=== PATIENT | male | born 1950 | race Caucasian/White ===

== ENCOUNTER 2017-09-13 11:01 | Emergency (ER) | payer BC, MEDICARE ==
[2017-09-13] MEDS ORDERED: Furosemide 40 MG/4 ML VIAL IVPUSH ONE (13:14)
[2017-09-13] MEDS ORDERED: Furosemide 40 MG/4 ML VIAL ONE (13:17)
--- NOTE | 2017-09-13 14:28 | ER ---
HISTORY OF PRESENT ILLNESS: A 66-year-old male who comes in with his with complaints of feeling very tired since Saturday and just not feeling well. Occasional mild shortness of breath, minimal coughing. The patient has not had any problems with fever that he is aware of. Appetite has been significantly reduced. The patient states that he was doing well until just a few days ago. Now, things are slowly but surely getting worse. He has no history of coronary artery disease or CHF to the best of his or his 's knowledge. 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 He has history of non- Hodgkin's lymphoma, history of a brain tumor, history of myelodysplastic syndrome. He has had a bone marrow transplant a couple of years ago. After the bone marrow transplant, he has been diagnosed with RSV pneumonia twice and he had a CVA last year that did not leave any residual deficits. The patient is on Eliquis for this. CURRENT MEDICATIONS: Reviewed as listed. OBJECTIVE: GENERAL APPEARANCE: The patient is awake and alert. No respiratory distress. He appears tired. VITAL SIGNS: Are reviewed. Initial blood pressure is 153/94 , O2 sats are 62% on room air. A non-rebreather was applied, and the patient sats increased up to 95%. The respiration rate was 28 upon arrival. He is afebrile. The patient has rales throughout the lung garza. Oral mucous membranes are slightly dry. Tonsils not enlarged or injected. Pharynx not inflamed. NECK: Supple. I do notice minimal JVD today. ABDOMEN: Soft and nontender. Bowel sounds are present. EXTREMITIES: There is no lower extremity edema. SKIN: Intact. At this point, we did remove the oxygen temporarily and the patient's sats dropped quickly when they reached 79%, we reapplied the oxygen they dropped to 74% before recovering and then went back into the mid 90s. The patient did not seem to react much to the change in oxygen saturation. LABS: CBC shows a white count of 10.3, normal neutrophils or slightly elevated at 88.2, otherwise unremarkable. Metabolic panel shows a potassium of 5.7, sodium 135, BUN of 46, creatinine 2.71. GFR 24 glucose was 436[place] [address]. UA shows glucosuria and proteinuria. This triggered additional lab work to be done and that includes a lactic acid, VBG and the troponin, these results are currently pending and will be reported later. INITIAL DIAGNOSES: 1. ACUTE CHF. 2. RENAL FAILURE WITH A HISTORY OF RENAL FAILURE. 3. Hyperkalemia. TREATMENT PLAN: I did consult with in [place] talking to Dr. Crouch, hospitalist who accepted care for the patient. He will be transferred by fixed-wing aircraft. Lasix 60 mg was given IV here and a Bose started. Remaining details, I will dictate at a later time. CRS/MODL /[id number] MTDD
--- NOTE | 2017-09-13 14:42 | ER ---
ADDENDUM: Additional lab results revealed a lactic acid of 2.67, and troponin is elevated at 0.556. Venous blood gases show a pH of 7.39, pCO2 53.7, pO2 of 26, bicarb 32.7. I did call and talk one more time with Dr. Crouch, hospitalist at [facility] informing her of these new lab results. The patient was given 4 aspirin and he already is on Eliquis because of a CVA he had about 1 year ago. I informed her of these new findings. She did not order any additional blood thinners such as Plavix or heparin. She informed me she would be waiting for the patient when he arrived in [place]. He left our facility at about 2 :20 and will be traveling by fixed wing to [facility] in [place]. Additional diagnosis; 1. Non STEMI NH. 2. Possible Sepsis CRS/MODL /[id number] STEPHENIE
[2017-09-13 14:51] VITALS: BP 188/128
--- NOTE | 2017-09-13 17:16 | CR ---
DATE OF SERVICE: 09/13/17 CLINICAL DATA: SOB AP PORTABLE CHEST No priors. The heart is enlarged. There is pulmonary vascular congestion and bilateral perihilar pulmonary edema consistent with congestive failure. No pleural effusion. No pneumothorax. No other significant findings. [id number] MTDD
[2017-09-14] MEDS ORDERED: Aspirin 81 MG Tab.Chew PO SCH (08:00)
== END 2017-09-13 14:10 ==
LOC: LB.ED 11:01
DX: I21.4 Non-ST elevation (NSTEMI) myocardial infarction (principal); I50.9 Heart failure, unspecified; E87.5 Hyperkalemia
CPT/HCPCS: 36415; 51702; 71010; 80053; 81003; 82803; 83605; 83880; 84484; 85025; 93005; 96374; 99284; 99285; A0425; A0429; A9270; J1940

== ENCOUNTER 2017-09-18 23:58 | Observation (INO) | payer BC, MEDICARE ==
--- NOTE | 2017-09-19 01:30 | EDM.PDOC ---
ED HPI GENERAL MEDICAL PROBLEM - General Chief Complaint: General Stated Complaint: HIGH BLOOD GLUCOSE Time Seen by Provider: 09/19/17 01:25 Source of Information: Reports: Patient, Family, RN History Limitations: Reports: No Limitations - History of Present Illness INITIAL COMMENTS - FREE TEXT/NARRATIVE: 66 yr male with elevated blood sugar >600 at home. Pt is alert and ambulatory with walker and portable oxygen. States discharged from [facility], and spent the night in [place], then came home to cabin in [facility] [place]. States she had medications filled @ [facility] pharmacy, but Januvia wasn't filled, states she forgot to check if all medications were there. States he was just started on diabetic oral medications, during hospital stay. He has taken Glipizide bid. He was in [facility] with elevated troponins and elevated BNP per and pt. States checked blood sugar at 930pm 09-18-17 and was around 600 , has been staying with friend in [facility] as they had closed their cabin and were planning to go back to [place], [place]. He has medical appointments there next week. Onset: Today - Related Data Allergies Allergy/AdvReac Type Severity Reaction Status Date / Time No Known Allergies Allergy Verified 09/19/17 00:04 Home Meds: Home Meds Acyclovir 400 mg PO DAILY 09/13/17 [History] Apixaban [Eliquis] 5 mg PO BID 09/13/17 [History] Celecoxib [CeleBREX] 200 mg PO DAILY 09/13/17 [History] Cholecalciferol (Vitamin D3) [Vitamin D] 5,000 unit PO DAILY 09/13/17 [History] DULoxetine HCl [Cymbalta] 30 mg PO DAILY 09/13/17 [History] Fluconazole [Diflucan] 200 mg PO DAILY 09/13/17 [History] Fludrocortisone [Florinef] 0.1 mg PO WITHBREAKFAST 09/13/17 [History] Folic Acid 1 mg PO DAILY 09/13/17 [History] Gabapentin [Neurontin] 100 mg PO TID 09/13/17 [History] Hydrocortisone 20 mg PO BID 09/13/17 [History] Multivitamin [Multi-Day Vitamins] 1 each PO DAILY 09/13/17 [History] Omeprazole Magnesium [Prilosec Otc] 20 mg PO BID 09/13/17 [History] Penicillin V Potassium 500 mg PO BID 09/13/17 [History] Potassium Chloride [Klor-Con M20] 20 meq PO BID 09/13/17 [History] Prednisone [IJD: predniSONE] 20 mg PO WITHBREAKFAST 09/13/17 [History] Sirolimus 1 mg PO BID 09/13/17 [History] Sulfamethoxazole/Trimethoprim [Bactrim 400-80 MG] 1 each PO BID 09/13/17 [ History] Sulfamethoxazole/Trimethoprim [Bactrim 400-80 MG] 1 each PO DAILY 09/13/17 [ History] Past Medical History - Past Health History Medical/Surgical History: Denies Medical/Surgical History Cardiovascular History: Reports: [place] Neurological History: Reports: CVA Other Neuro History: Brain Tumor Endocrine/Metabolic History: Reports: Diabetes, Type II Other Hematologic History: bone marrow transplant, myelodysplastic syndrome Other Immunologic History: nonhodgkin's lymphoma Other Oncologic History: MDS - Past Surgical History Other HEENT Surgeries/Procedures: throat surgery Other Neurological Surgeries/Procedures: Brain Surgery Social & Family History - Tobacco Use Smoking Status *Q: Never Smoker Second Hand Smoke Exposure: No - Recreational Drug Use Recreational Drug Use: No ED ROS GENERAL - Review of Systems Review Of Systems: See Below Constitutional: Reports: No Symptoms HEENT: Reports: No Symptoms Respiratory: Reports: Other (portable oxygen) Cardiovascular: Reports: No Symptoms Endocrine: Reports: High Glucose GI/Abdominal: Reports: Difficulty Swallowing, Other (GI tube for medications) : Reports: No Symptoms Musculoskeletal: Reports: Other (ambulating with walker) Skin: Reports: Other (GI tube) Neurological: Reports: No Symptoms Psychiatric: Reports: No Symptoms ED EXAM, GENERAL - Physical Exam Exam: See Below Exam Limited By: No Limitations General Appearance: Alert, No Apparent Distress Ears: Normal External Exam Nose: Normal Inspection Throat/Mouth: Normal Inspection Head: Atraumatic Neck: Supple, Non-Tender Respiratory/Chest: No Respiratory Distress, Decreased Breath Sounds Cardiovascular: No Edema GI/Abdominal: Normal Bowel Sounds, Soft, Non-Tender (Male) Exam: Deferred Rectal (Males) Exam: Deferred Back Exam: Normal Inspection Extremities: Normal Range of Motion, No Pedal Edema Neurological: Alert, Oriented, Normal Cognition Psychiatric: Normal Affect Skin Exam: Warm, Dry, Other (ashen color) Course - Vital Signs Last Recorded V/S: Last Vital Signs Temp 97.8 F 09/19/17 05:00 Pulse 90 09/19/17 05:00 Resp 16 09/19/17 05:00 BP 144/68 H 09/19/17 05:00 Pulse Ox 97 09/19/17 05:34 - Orders/Labs/Meds Orders: Medication Orders Potassium Chloride/Sodium Chloride (1/2 Ns With 20 Meq Kcl) 1,000 mls @ 125 mls /hr IV ASDIRECTED AZEEM Insulin Human Regular (Humulin R) 0 unit SUBCUT BIDAC AZEEM PRN Reason: Protocol (Acyclovir [ (Acyclovir] 400 Mg)) 400 mg PO DAILY AZEEM (Apixaban [Eliquis] (5 Mg)) 5 mg PO BID AZEEM (Duloxetine Hcl [ (Cymbalta] 30 Mg)) 30 mg PO DAILY AZEEM (Fludrocortisone [ (Florinef] 0.1 Mg)) 0.1 mg PO WITHBREAKFAST AZEEM (Folic Acid [Folic (Acid] 1 Mg)) 1 mg PO DAILY AZEEM Non-Formulary Medication (Gabapentin [Neurontin]) 100 mg PO TID AZEEM Non-Formulary Medication (Hydrocortisone [Hydrocortisone]) 20 mg PO BID AZEEM (Multivitamin [Multi -Day Vitamins] 1 Each) 1 each PO DAILY AZEEM Non-Formulary Medication (Omeprazole Magnesium [Prilosec Otc]) 20 mg PO BID AZEEM Non-Formulary Medication (Prednisone [Ijd: Prednisone]) 20 mg PO WITHBREAKFAST AZEEM (Sulfamethoxazole/Trimethoprim [ Bactrim 400-80 Mg] 1 Each) 1 each PO DAILY AZEEM Potassium Chloride (Klor-Con M20) 20 meq PO TID AZEEM Labs: Laboratory Tests 09/19/17 09/19/17 09/19/17 Range/Units 01:30 01:30 01:30 WBC 7.7 D (4.0-11.0) K/uL RBC 2.76 L (4.50-6.50) M/uL Hgb 8.8 L (13.0-18.0) g/dL Hct 27.5 L (40.0-54.0) % MCV 100 H (76-96) fL MCH 31.9 (27.0-32.0) pg MCHC 32.0 (31.0-35.0) g/dL RDW 13.7 (11.0-16.0) % Plt Count 222 (150-400) K/uL MPV 11.8 H (6.0-10.0) fL Neut % (Auto) 84.6 H (45.0-70.0) % Lymph % (Auto) 9.2 L (20.0-40.0) % [place] % (Auto) 5.4 (3.0-10.0) % Eos % (Auto) 0.0 L (1.0-5.0) % Baso % (Auto) 0.8 H (0.0-0.5) % Neut # (Auto) 6.53 (2.00-7.50) K/uL Lymph # (Auto) 0.71 L (1.50-4.00) K/uL [place] # (Auto) 0.42 (0.20-0.80) K/uL Eos # (Auto) 0.00 L (0.04-0.40) K/uL Baso # (Auto) 0.06 (0.02-0.10) K/uL PT (9.0-11.5) sec INR (1.0-3.5) Sodium 135 L (136-145) mmol/L Potassium 3.8 D (3.5-5.1) mmol/L Chloride 92 L (98-107) mmol/L Carbon Dioxide 30.8 (21.0-32.0) mmol/L Anion Gap 16.0 H (5.0-15.0) mmol/L BUN 54 H* (8-26) mg/dL Creatinine 2.64 H (0.70-1.30) mg/dL Est Cr Clr Drug Dosing 27.00 mL/min Estimated GFR (MDRD) 24 L (>60) MLS/MIN BUN/Creatinine Ratio 20.5 (6-25) Glucose 653 H* D (74-100) mg/dL Lactic Acid 6.46 H (0.90-1.70) mmol/L Calcium 8.4 L (8.5-10.1) mg/dL Total Bilirubin 0.3 D (0.0-1.0) mg/dL AST 27 (15-37) U/L ALT 30 (12-78) U/L Alkaline Phosphatase 117 H (46-116) U/L Troponin I (0.000-0.060) ng/mL B-Natriuretic Peptide (0-125) pg/mL Total Protein 5.9 L (6.4-8.2) g/dL Albumin 2.3 L (3.4-5.0) g/dL Globulin 3.6 (2.2-4.2) g/dL Albumin/Globulin Ratio 0.6 L (0.8-2.0) Urine Color Urine Appearance (CLEAR) Urine pH (5.0-8.0) Ur Specific [place] (1.003-1.030) Urine Protein (NEGATIVE) mg/dL Urine Glucose (UA) (NEGATIVE) mg/dL Urine Ketones (NEGATIVE) mg/dL Urine Occult Blood (NEGATIVE) Urine Nitrite (NEGATIVE) Urine Bilirubin (NEGATIVE) Urine Urobilinogen (0.2-1.0) E.U./dL Ur Leukocyte Esterase (NEGATIVE) Urine RBC /HPF Urine WBC /HPF Ur Squamous Epith Cells /HPF 09/19/17 09/19/17 09/19/17 Range/Units 01:30 01:31 01:35 WBC (4.0-11.0) K/uL RBC (4.50-6.50) M/uL Hgb (13.0-18.0) g/dL Hct (40.0-54.0) % MCV (76-96) fL MCH (27.0-32.0) pg MCHC (31.0-35.0) g/dL RDW (11.0-16.0) % Plt Count (150-400) K/uL MPV (6.0-10.0) fL Neut % (Auto) (45.0-70.0) % Lymph % (Auto) (20.0-40.0) % [place] % (Auto) (3.0-10.0) % Eos % (Auto) (1.0-5.0) % Baso % (Auto) (0.0-0.5) % Neut # (Auto) (2.00-7.50) K/uL Lymph # (Auto) (1.50-4.00) K/uL [place] # (Auto) (0.20-0.80) K/uL Eos # (Auto) (0.04-0.40) K/uL Baso # (Auto) (0.02-0.10) K/uL PT 9.7 (9.0-11.5) sec INR 1.0 (1.0-3.5) Sodium (136-145) mmol/L Potassium (3.5-5.1) mmol/L Chloride (98-107) mmol/L Carbon Dioxide (21.0-32.0) mmol/L Anion Gap (5.0-15.0) mmol/L BUN (8-26) mg/dL Creatinine (0.70-1.30) mg/dL Est Cr Clr Drug Dosing mL/min Estimated GFR (MDRD) (>60) MLS/MIN BUN/Creatinine Ratio (6-25) Glucose (74-100) mg/dL Lactic Acid (0.90-1.70) mmol/L Calcium (8.5-10.1) mg/dL Total Bilirubin (0.0-1.0) mg/dL AST (15-37) U/L ALT (12-78) U/L Alkaline Phosphatase (46-116) U/L Troponin I 0.083 H* D (0.000-0.060) ng/mL B-Natriuretic Peptide 3653 H D (0-125) pg/mL Total Protein (6.4-8.2) g/dL Albumin (3.4-5.0) g/dL Globulin (2.2-4.2) g/dL Albumin/Globulin Ratio (0.8-2.0) Urine Color Urine Appearance (CLEAR) Urine pH (5.0-8.0) Ur Specific [place] (1.003-1.030) Urine Protein (NEGATIVE) mg/dL Urine Glucose (UA) (NEGATIVE) mg/dL Urine Ketones (NEGATIVE) mg/dL Urine Occult Blood (NEGATIVE) Urine Nitrite (NEGATIVE) Urine Bilirubin (NEGATIVE) Urine Urobilinogen (0.2-1.0) E.U./dL Ur Leukocyte Esterase (NEGATIVE) Urine RBC /HPF Urine WBC /HPF Ur Squamous Epith Cells /HPF 09/19/17 Range/Units 02:10 WBC (4.0-11.0) K/uL RBC (4.50-6.50) M/uL Hgb (13.0-18.0) g/dL Hct (40.0-54.0) % MCV (76-96) fL MCH (27.0-32.0) pg MCHC (31.0-35.0) g/dL RDW (11.0-16.0) % Plt Count (150-400) K/uL MPV (6.0-10.0) fL Neut % (Auto) (45.0-70.0) % Lymph % (Auto) (20.0-40.0) % [place] % (Auto) (3.0-10.0) % Eos % (Auto) (1.0-5.0) % Baso % (Auto) (0.0-0.5) % Neut # (Auto) (2.00-7.50) K/uL Lymph # (Auto) (1.50-4.00) K/uL [place] # (Auto) (0.20-0.80) K/uL Eos # (Auto) (0.04-0.40) K/uL Baso # (Auto) (0.02-0.10) K/uL PT (9.0-11.5) sec INR (1.0-3.5) Sodium (136-145) mmol/L Potassium (3.5-5.1) mmol/L Chloride (98-107) mmol/L Carbon Dioxide (21.0-32.0) mmol/L Anion Gap (5.0-15.0) mmol/L BUN (8-26) mg/dL Creatinine (0.70-1.30) mg/dL Est Cr Clr Drug Dosing mL/min Estimated GFR (MDRD) (>60) MLS/MIN BUN/Creatinine Ratio (6-25) Glucose (74-100) mg/dL Lactic Acid (0.90-1.70) mmol/L Calcium (8.5-10.1) mg/dL Total Bilirubin (0.0-1.0) mg/dL AST (15-37) U/L ALT (12-78) U/L Alkaline Phosphatase (46-116) U/L Troponin I (0.000-0.060) ng/mL B-Natriuretic Peptide (0-125) pg/mL Total Protein (6.4-8.2) g/dL Albumin (3.4-5.0) g/dL Globulin (2.2-4.2) g/dL Albumin/Globulin Ratio (0.8-2.0) Urine Color Yellow Urine Appearance Clear (CLEAR) Urine pH 5.0 (5.0-8.0) Ur Specific [place] 1.010 (1.003-1.030) Urine Protein Negative (NEGATIVE) mg/dL Urine Glucose (UA) 500 H (NEGATIVE) mg/dL Urine Ketones Negative (NEGATIVE) mg/dL Urine Occult Blood Trace-lysed H (NEGATIVE) Urine Nitrite Negative (NEGATIVE) Urine Bilirubin Negative (NEGATIVE) Urine Urobilinogen 0.2 (0.2-1.0) E.U./dL Ur Leukocyte Esterase Negative (NEGATIVE) Urine RBC 0-5 H /HPF Urine WBC 0-5 H /HPF Ur Squamous Epith Cells Few /HPF Meds: Medications Generic Name Dose Route Start Last Admin Trade Name Freq PRN Reason Stop Dose Admin Potassium Chloride/Sodium Chloride 1,000 mls @ 125 mls/hr 09/19/17 07:45 1/2 Ns With 20 Meq Kcl IV ASDIRECTED AZEEM Insulin Human Regular 0 unit 09/19/17 08:15 Humulin R SUBCUT BIDAC AZEEM Protocol (Acyclovir [ 400 mg 09/19/17 08:00 Acyclovir] 400 Mg) PO DAILY AZEEM (Apixaban [Eliquis] 5 mg 09/19/17 08:00 5 Mg) PO BID AZEEM (Duloxetine Hcl [ 30 mg 09/19/17 08:00 Cymbalta] 30 Mg) PO DAILY AZEEM (Fludrocortisone [ 0.1 mg 09/20/17 07:00 Florinef] 0.1 Mg) PO WITHBREAKFAST AZEEM (Folic Acid [Folic 1 mg 09/19/17 08:00 Acid] 1 Mg) PO DAILY AZEEM Non-Formulary Medication 100 mg 09/19/17 08:00 Gabapentin [Neurontin] PO TID AZEEM Non-Formulary Medication 20 mg 09/19/17 08:00 Hydrocortisone [Hydrocortisone] PO BID AZEEM (Multivitamin [Multi 1 each 09/19/17 08:00 -Day Vitamins] 1 PO Each) DAILY AZEEM Non-Formulary Medication 20 mg 09/19/17 08:00 Omeprazole Magnesium [Prilosec Otc] PO BID AZEEM Non-Formulary Medication 20 mg 09/20/17 07:00 Prednisone [Ijd: Prednisone] PO WITHBREAKFAST AZEEM (Sulfamethoxazole/ 1 each 09/19/17 08:00 Trimethoprim [ PO Bactrim 400-80 Mg] 1 DAILY AZEEM Each) Potassium Chloride 20 meq 09/19/17 07:45 Klor-Con M20 PO TID AZEEM Discontinued Medications Generic Name Dose Route Start Last Admin Trade Name Johnny PRN Reason Stop Dose Admin Sodium Chloride 1,000 mls @ 250 mls/hr 09/19/17 02:45 09/19/17 02:45 Sodium Chloride 0.45% IV 250 mls/hr ASDIRECTED AZEEM Administration Sodium Chloride 1,000 mls @ 999 mls/hr 09/19/17 01:40 09/19/17 01:40 Normal Saline IV 999 mls/hr ASDIRECTED AZEEM Administration Insulin Human Regular 10 unit 09/19/17 02:45 09/19/17 02:30 Humulin R SUBCUT 09/19/17 02:46 10 units ONETIME ONE Administration Protocol - Re-Assessments/Exams Free Text/Narrative Re-Assessment/Exam: 09-19-17 3:30 Discharge to observation: Monitor blood sugars every 1 hour, may have toast and juice this am as tolerated. Repeat Potassium and blood sugar at 3:30 and if stable, repeat labs 7am, BMP. Pt has been alert and talking and states no pain. States very tired after discharge from [facility] and travel to [facility]. 09/19/17 07:47 Potassium is 2.9 today and blood sugar is 325. A/P: hyperglycemia and hypokalemia: Change IV fluids to 0.45% saline and 20 KCL Potassium 20 meq PO tid with food. Medications as at home. Continue with sliding scale ac and hs. 09/19/17 07:51 09/19/17 09:15 Departure - Departure Time of Disposition: 03:30 Disposition: Refer to Observation Condition: Fair Clinical Impression: Hyperglycemia - Discharge Information
[2017-09-19] MEDS ORDERED: Sodium Chloride 0.9% 1,000 ML IV SCH (01:40)
[2017-09-19] MEDS ORDERED: Insulin Regular, Human 100 Units/ML 3 ML Vial SUBCUT ONE (02:45)
[2017-09-19] MEDS ORDERED: Sodium Chloride 0.45% 1,000 ML IV SCH (02:45)
[2017-09-19] MEDS ORDERED: Sodium Chloride 0.45% with KCl 1,000 ML IV SCH (07:45)
[2017-09-19] MEDS ORDERED: MULTIVITAMIN PO SCH (08:00)
[2017-09-19] MEDS ORDERED: Insulin Regular, Human 100 Units/ML 3 ML Vial SUBCUT SCH ×2 (08:15→12:00)
[2017-09-19] MEDS: FUROSEMIDE 40 MG PO SCH (13:30)
[2017-09-19] MEDS: Non-Formulary Medication 1 Each (Gabapentin [Neurontin] 100 MG) PO SCH ×3 (13:30→20:30)
[2017-09-19] MEDS: Non-Formulary Medication 1 Each (Omeprazole Magnesium [Prilosec Otc] 20 MG) PO SCH ×2 (13:30→20:31)
[2017-09-19] MEDS: ACYCLOVIR 400 MG PO SCH (13:30)
[2017-09-19] MEDS: AMLODIPINE 5 MG PO SCH (13:30)
[2017-09-19] MEDS: Potassium Chloride 20 MEQ Tab.ER PO SCH ×3 (13:30→20:31)
[2017-09-19] MEDS: HYDROCORTISONE 20 MG PO SCH ×2 (13:30→20:33)
[2017-09-19] MEDS: FLUDROCORTISONE 0.1 MG PO SCH (13:30)
[2017-09-19] MEDS: DULOXETINE HCL 30 MG PO SCH (13:30)
[2017-09-19] MEDS: CARVEDILOL 6.25 MG PO SCH (13:30)
[2017-09-19] MEDS ORDERED: Potassium Chloride 20 MEQ Tab.ER PO ONE (13:54)
[2017-09-19] MEDS: TRIMETHOPRIM PO SCH (18:53)
[2017-09-19] MEDS: SULFAMETHOXAZOLE PO SCH (18:53)
[2017-09-19] MEDS: ATORVASTATIN 40 MG PO SCH (20:30)
[2017-09-20] MEDS ORDERED: Sodium Chloride 0.45% 1,000 ML IV SCH (00:45)
[2017-09-20] MEDS ORDERED: PREDNISONE 20 MG PO SCH (07:00)
[2017-09-20] MEDS: Potassium Chloride 20 MEQ Tab.ER PO SCH (08:00)
[2017-09-20] MEDS ORDERED: CELECOXIB 200 MG PO SCH (08:00)
[2017-09-20] MEDS ORDERED: GLIPIZIDE 5 MG PO SCH (08:00)
[2017-09-20] MEDS ORDERED: JANUVIA 50 MG PO SCH (08:00)
[2017-09-20] MEDS: Non-Formulary Medication 1 Each (Omeprazole Magnesium [Prilosec Otc] 20 MG) PO SCH (08:05)
--- NOTE | 2017-09-20 08:17 | PCM.PN ---
- General Info Date of Service: 09/20/17 Admission Dx/Problem (Free Text): hyperglycemia Subjective Update: Pt feeling better and states hungry today. States he and are ready to venture south to home in [place]. States they will take their time driving there and have stops along the way at motels. Functional Status: Reports: Tolerating Diet, Urinating - Review of Systems General: Reports: No Symptoms Pulmonary: Reports: No Symptoms Cardiovascular: Reports: No Symptoms Gastrointestinal: Reports: No Symptoms Genitourinary: Reports: No Symptoms Neurological: Reports: No Symptoms - Patient Data Vitals - Most Recent: Last Vital Signs Temp 97.8 F 09/19/17 05:00 Pulse 90 09/19/17 05:00 Resp 16 09/19/17 05:00 BP 144/68 H 09/19/17 05:00 Pulse Ox 97 09/19/17 05:34 Weight - Most Recent: 155 lb I&O - Last 24 Hours: Intake & Output 09/19/17 09/20/17 09/20/17 22:59 06:59 14:59 Intake Total 1722 2050 Output Total 1500 1200 Balance 222 850 Lab Results Last 24 Hours: Laboratory Results - last 24 hr 09/19/17 09/19/17 09/19/17 Range/Units 07:00 07:00 07:00 WBC (4.0-11.0) K/uL RBC (4.50-6.50) M/uL Hgb (13.0-18.0) g/dL Hct (40.0-54.0) % MCV (76-96) fL MCH (27.0-32.0) pg MCHC (31.0-35.0) g/dL RDW (11.0-16.0) % Plt Count (150-400) K/uL MPV (6.0-10.0) fL Neut % (Auto) (45.0-70.0) % Lymph % (Auto) (20.0-40.0) % Buchanan % (Auto) (3.0-10.0) % Eos % (Auto) (1.0-5.0) % Baso % (Auto) (0.0-0.5) % Neut # (Auto) (2.00-7.50) K/uL Lymph # (Auto) (1.50-4.00) K/uL Buchanan # (Auto) (0.20-0.80) K/uL Eos # (Auto) (0.04-0.40) K/uL Baso # (Auto) (0.02-0.10) K/uL VBG pH 7.50 H (7.31-7.41) VBG pCO2 48.0 (41-51) mm/Hg VBG pO2 52 H (30-50) mm/Hg VBG HCO3 37.1 H (23.0-28.0) mmol/L VBG O2 Saturation 89 H (60-85) % VBG Base Excess 14 H (-2-3) mm/L O2 Delivery Device Nasal cannula Sodium (136-145) mmol/L Potassium (3.5-5.1) mmol/L Chloride (98-107) mmol/L Carbon Dioxide (21.0-32.0) mmol/L Anion Gap (5.0-15.0) mmol/L BUN (8-26) mg/dL Creatinine (0.70-1.30) mg/dL Est Cr Clr Drug Dosing mL/min Estimated GFR (MDRD) (>60) MLS/MIN BUN/Creatinine Ratio (6-25) Glucose (74-100) mg/dL POC Glucose (74-110) mg/dL Hemoglobin A1c 9.6 H (4.5-6.2) % Lactic Acid (0.90-1.70) mmol/L Calcium (8.5-10.1) mg/dL Total Bilirubin (0.0-1.0) mg/dL AST (15-37) U/L ALT (12-78) U/L Alkaline Phosphatase (46-116) U/L Troponin I (0.000-0.060) ng/mL B-Natriuretic Peptide 3424 H (0-125) pg/mL Total Protein (6.4-8.2) g/dL Albumin (3.4-5.0) g/dL Globulin (2.2-4.2) g/dL Albumin/Globulin Ratio (0.8-2.0) 09/19/17 09/19/17 09/19/17 Range/Units 12:00 16:55 16:55 WBC (4.0-11.0) K/uL RBC (4.50-6.50) M/uL Hgb (13.0-18.0) g/dL Hct (40.0-54.0) % MCV (76-96) fL MCH (27.0-32.0) pg MCHC (31.0-35.0) g/dL RDW (11.0-16.0) % Plt Count (150-400) K/uL MPV (6.0-10.0) fL Neut % (Auto) (45.0-70.0) % Lymph % (Auto) (20.0-40.0) % Buchanan % (Auto) (3.0-10.0) % Eos % (Auto) (1.0-5.0) % Baso % (Auto) (0.0-0.5) % Neut # (Auto) (2.00-7.50) K/uL Lymph # (Auto) (1.50-4.00) K/uL Buchanan # (Auto) (0.20-0.80) K/uL Eos # (Auto) (0.04-0.40) K/uL Baso # (Auto) (0.02-0.10) K/uL VBG pH (7.31-7.41) VBG pCO2 (41-51) mm/Hg VBG pO2 (30-50) mm/Hg VBG HCO3 (23.0-28.0) mmol/L VBG O2 Saturation (60-85) % VBG Base Excess (-2-3) mm/L O2 Delivery Device Sodium 143 (136-145) mmol/L Potassium 3.4 L (3.5-5.1) mmol/L Chloride 100 (98-107) mmol/L Carbon Dioxide 39.4 H (21.0-32.0) mmol/L Anion Gap 7.0 (5.0-15.0) mmol/L BUN 37 H (8-26) mg/dL Creatinine 1.81 H (0.70-1.30) mg/dL Est Cr Clr Drug Dosing 39.38 mL/min Estimated GFR (MDRD) 38 L (>60) MLS/MIN BUN/Creatinine Ratio 20.4 (6-25) Glucose 213 H D (74-100) mg/dL POC Glucose (74-110) mg/dL Hemoglobin A1c (4.5-6.2) % Lactic Acid (0.90-1.70) mmol/L Calcium 8.1 L (8.5-10.1) mg/dL Total Bilirubin (0.0-1.0) mg/dL AST (15-37) U/L ALT (12-78) U/L Alkaline Phosphatase (46-116) U/L Troponin I 0.102 H* 0.094 H* (0.000-0.060) ng/mL B-Natriuretic Peptide (0-125) pg/mL Total Protein (6.4-8.2) g/dL Albumin (3.4-5.0) g/dL Globulin (2.2-4.2) g/dL Albumin/Globulin Ratio (0.8-2.0) 09/19/17 09/19/17 09/19/17 Range/Units 21:07 23:00 23:56 WBC (4.0-11.0) K/uL RBC (4.50-6.50) M/uL Hgb (13.0-18.0) g/dL Hct (40.0-54.0) % MCV (76-96) fL MCH (27.0-32.0) pg MCHC (31.0-35.0) g/dL RDW (11.0-16.0) % Plt Count (150-400) K/uL MPV (6.0-10.0) fL Neut % (Auto) (45.0-70.0) % Lymph % (Auto) (20.0-40.0) % Buchanan % (Auto) (3.0-10.0) % Eos % (Auto) (1.0-5.0) % Baso % (Auto) (0.0-0.5) % Neut # (Auto) (2.00-7.50) K/uL Lymph # (Auto) (1.50-4.00) K/uL Buchanan # (Auto) (0.20-0.80) K/uL Eos # (Auto) (0.04-0.40) K/uL Baso # (Auto) (0.02-0.10) K/uL VBG pH (7.31-7.41) VBG pCO2 (41-51) mm/Hg VBG pO2 (30-50) mm/Hg VBG HCO3 (23.0-28.0) mmol/L VBG O2 Saturation (60-85) % VBG Base Excess (-2-3) mm/L O2 Delivery Device Sodium (136-145) mmol/L Potassium 4.2 D (3.5-5.1) mmol/L Chloride (98-107) mmol/L Carbon Dioxide (21.0-32.0) mmol/L Anion Gap (5.0-15.0) mmol/L BUN (8-26) mg/dL Creatinine (0.70-1.30) mg/dL Est Cr Clr Drug Dosing mL/min Estimated GFR (MDRD) (>60) MLS/MIN BUN/Creatinine Ratio (6-25) Glucose (74-100) mg/dL POC Glucose 337 H 249 H (74-110) mg/dL Hemoglobin A1c (4.5-6.2) % Lactic Acid (0.90-1.70) mmol/L Calcium (8.5-10.1) mg/dL Total Bilirubin (0.0-1.0) mg/dL AST (15-37) U/L ALT (12-78) U/L Alkaline Phosphatase (46-116) U/L Troponin I (0.000-0.060) ng/mL B-Natriuretic Peptide (0-125) pg/mL Total Protein (6.4-8.2) g/dL Albumin (3.4-5.0) g/dL Globulin (2.2-4.2) g/dL Albumin/Globulin Ratio (0.8-2.0) 09/20/17 09/20/17 09/20/17 Range/Units 07:15 07:15 07:15 WBC 9.1 (4.0-11.0) K/uL RBC 2.49 L (4.50-6.50) M/uL Hgb 7.9 L (13.0-18.0) g/dL Hct 25.1 L (40.0-54.0) % MCV 101 H (76-96) fL MCH 31.7 (27.0-32.0) pg MCHC 31.5 (31.0-35.0) g/dL RDW 14.5 (11.0-16.0) % Plt Count 208 (150-400) K/uL MPV 11.0 H (6.0-10.0) fL Neut % (Auto) 66.5 (45.0-70.0) % Lymph % (Auto) 19.9 L (20.0-40.0) % Buchanan % (Auto) 10.3 H (3.0-10.0) % Eos % (Auto) 2.9 (1.0-5.0) % Baso % (Auto) 0.4 (0.0-0.5) % Neut # (Auto) 6.02 (2.00-7.50) K/uL Lymph # (Auto) 1.80 (1.50-4.00) K/uL Buchanan # (Auto) 0.93 H (0.20-0.80) K/uL Eos # (Auto) 0.26 (0.04-0.40) K/uL Baso # (Auto) 0.04 (0.02-0.10) K/uL VBG pH (7.31-7.41) VBG pCO2 (41-51) mm/Hg VBG pO2 (30-50) mm/Hg VBG HCO3 (23.0-28.0) mmol/L VBG O2 Saturation (60-85) % VBG Base Excess (-2-3) mm/L O2 Delivery Device Sodium 144 (136-145) mmol/L Potassium 3.0 L D (3.5-5.1) mmol/L Chloride 102 (98-107) mmol/L Carbon Dioxide 37.9 H (21.0-32.0) mmol/L Anion Gap 7.1 (5.0-15.0) mmol/L BUN 25 D (8-26) mg/dL Creatinine 1.57 H (0.70-1.30) mg/dL Est Cr Clr Drug Dosing 45.40 mL/min Estimated GFR (MDRD) 44 L (>60) MLS/MIN BUN/Creatinine Ratio 15.9 (6-25) Glucose 138 H D (74-100) mg/dL POC Glucose (74-110) mg/dL Hemoglobin A1c (4.5-6.2) % Lactic Acid 1.39 (0.90-1.70) mmol/L Calcium 7.7 L (8.5-10.1) mg/dL Total Bilirubin 0.3 (0.0-1.0) mg/dL AST 25 (15-37) U/L ALT 23 (12-78) U/L Alkaline Phosphatase 79 (46-116) U/L Troponin I 0.108 H* (0.000-0.060) ng/mL B-Natriuretic Peptide (0-125) pg/mL Total Protein 4.8 L (6.4-8.2) g/dL Albumin 1.9 L (3.4-5.0) g/dL Globulin 2.9 (2.2-4.2) g/dL Albumin/Globulin Ratio 0.7 L (0.8-2.0) Med Orders - Current: Current Medications Potassium Chloride/Sodium Chloride (1/2 Ns With 20 Meq Kcl) 1,000 mls @ 125 mls /hr IV ASDIRECTED [facility] Last Admin: 09/19/17 11:40 Dose: 75 mls/hr Sodium Chloride (Sodium Chloride 0.45%) 1,000 mls @ 75 mls/hr IV ASDIRECTED [facility] Last Admin: 09/19/17 00:15 Dose: 75 mls/hr (Acyclovir [ (Acyclovir] 400 Mg)) 400 mg PO DAILY [facility] Last Admin: 09/19/17 13:30 Dose: 400 mg (Apixaban [Eliquis] (5 Mg)) 5 mg PO BID [facility] Last Admin: 09/19/17 20:30 Dose: 5 mg (Duloxetine Hcl [ (Cymbalta] 30 Mg)) 30 mg PO DAILY [facility] Last Admin: 09/19/17 13:30 Dose: 30 mg (Fludrocortisone [ (Florinef] 0.1 Mg)) 0.1 mg PO WITHBREAKFAST [facility] Last Admin: 09/19/17 13:30 Dose: 0.1 mg Non-Formulary Medication (Gabapentin [Neurontin]) 100 mg PO TID [facility] Last Admin: 09/19/17 20:30 Dose: 100 mg Non-Formulary Medication (Hydrocortisone [Hydrocortisone]) 20 mg PO BID [facility] Last Admin: 09/19/17 20:33 Dose: Not Given Non-Formulary Medication (Omeprazole Magnesium [Prilosec Otc]) 20 mg PO BID [facility] Last Admin: 09/19/17 20:31 Dose: 20 mg (Sulfamethoxazole/Trimethoprim [ Bactrim 400-80 Mg] 1 Each) 1 each PO DAILY [facility] Last Admin: 09/19/17 18:53 Dose: Not Given (Cholecalciferol ( Vitamin D3) [Vitamin D] 5,000 Unit) 5,000 unit PO DAILY [facility] Last Admin: 09/19/17 18:53 Dose: Not Given Januvia 50mg Tablets 0.5 each PO DAILY [facility] Celecoxib 200mg (Capsules) 1 each PO DAILY [facility] Atorvastatin 40mg (Tablets) 1 each PO DAILY [facility] Last Admin: 09/19/17 20:30 Dose: 1 each Glipizide 5mg (Tablets) 1 each PO DAILY [facility] Carvedilol 6.25mg (Tablets) 1 each PO BIDMEALS [facility] Last Admin: 09/19/17 13:30 Dose: 1 each Amlodipine 5mg (Tablets) 1 each PO DAILY [facility] Last Admin: 09/19/17 13:30 Dose: 1 each Furosemide 40mg (Tablets) 1 each PO DAILY [facility] Last Admin: 09/19/17 13:30 Dose: 1 each (Folic Acid [Folic (Acid] 1 Mg)) 1 mg PO BID [facility] Last Admin: 09/19/17 20:30 Dose: 1 mg Potassium Chloride (Klor-Con M20) 20 meq PO TID [facility] Last Admin: 09/19/17 20:31 Dose: 20 meq Discontinued Medications Sodium Chloride (Sodium Chloride 0.45%) 1,000 mls @ 250 mls/hr IV ASDIRECTED [facility] Last Admin: 09/19/17 02:45 Dose: 250 mls/hr Sodium Chloride (Normal Saline) 1,000 mls @ 999 mls/hr IV ASDIRECTED [facility] Last Admin: 09/19/17 01:40 Dose: 999 mls/hr Insulin Human Regular (Humulin R) 10 unit SUBCUT ONETIME ONE PRN Reason: Protocol Stop: 09/19/17 02:46 Last Admin: 09/19/17 02:30 Dose: 10 units Insulin Human Regular (Humulin R) 0 unit SUBCUT ONETIME [facility] PRN Reason: Protocol Stop: 09/19/17 13:00 Last Admin: 09/19/17 12:57 Dose: 3 units (Folic Acid [Folic (Acid] 1 Mg)) 1 mg PO DAILY [facility] (Multivitamin [Multi -Day Vitamins] 1 Each) 1 each PO DAILY [facility] Non-Formulary Medication (Prednisone [Ijd: Prednisone]) 20 mg PO WITHBREAKFAST [facility] (Fluconazole [ (Diflucan] 200 Mg)) 200 mg PO DAILY [facility] Stop: 09/19/17 18:00 Last Admin: 09/19/17 13:30 Dose: 200 mg (Sulfamethoxazole/Trimethoprim [ Bactrim 400-80 Mg] 1 Each) 1 each PO BID [facility] Stop: 09/19/17 18:00 Potassium Chloride (Klor-Con M20) 40 meq PO ONETIME ONE Stop: 09/19/17 13:55 - Exam Quality Assessment: Supplemental Oxygen General: Alert, Oriented, Cooperative, No Acute Distress HEENT: Mucous Membr. Moist/[place]val Neck: Supple Lungs: Clear to Auscultation, Decreased Breath Sounds Cardiovascular: Regular Rate, Regular Rhythm GI/Abdominal Exam: Normal Bowel Sounds, Soft, Non-Tender, No Distention Extremities: Normal Inspection, Non-Tender, No Pedal Edema Skin: Warm, Dry Wound/Incisions: Other (G-tube intact and dressing dry around site) Neurological: No New Focal Deficit Psy/Mental Status: Alert, Normal Affect, Normal Mood - Problem List & Annotations (1) Hyperglycemia SNOMED Code(s): 24952535 Code(s): R73.9 - HYPERGLYCEMIA, UNSPECIFIED Status: Acute Current Visit: Yes (2) Hypokalemia SNOMED Code(s): 79668466 Code(s): E87.6 - HYPOKALEMIA Status: Acute Current Visit: Yes - Problem List Review Problem List Initiated/Reviewed/Updated: Yes - My Orders Last 24 Hours: My Active Orders 09/19/17 07:45 Potassium Chloride [Klor-Con M20] 20 meq PO TID Sodium Chloride 0.45% with KCl [1/2 NS with 20 mEq KCl] 1,000 ml IV ASDIRECTED 09/19/17 08:00 Acyclovir [Acyclovir] 400 mg PO DAILY Apixaban [Eliquis] 5 mg PO BID DULoxetine HCl [Cymbalta] 30 mg PO DAILY Gabapentin [Neurontin] 100 mg PO TID Hydrocortisone [Hydrocortisone] 20 mg PO BID Omeprazole Magnesium [Prilosec Otc] 20 mg PO BID Sulfamethoxazole/Trimethoprim [Bactrim 400-80 MG] 1 each PO DAILY 09/19/17 08:34 Telemetry Monitoring [Cardiac Monitoring] [RC] .As Directed 09/19/17 08:46 Patient Status [ADT] Routine 09/19/17 09:52 Cholecalciferol (Vitamin D3) [Vitamin D] 5,000 unit PO DAILY 09/19/17 17:00 Non-Formulary Medication [NF Drug] 1 each PO BIDMEALS 09/19/17 20:00 Folic Acid [Folic Acid] 1 mg PO BID 09/19/17 Lunch Consistent Carbohydrate Diet [DIET] 09/20/17 00:45 Sodium Chloride 0.45% 1,000 ml IV ASDIRECTED 09/20/17 07:00 Fludrocortisone [Florinef] 0.1 mg PO WITHBREAKFAST 09/20/17 08:00 Non-Formulary Medication [NF Drug] 0.5 each PO DAILY Non-Formulary Medication [NF Drug] 1 each PO DAILY Non-Formulary Medication [NF Drug] 1 each PO DAILY Non-Formulary Medication [NF Drug] 1 each PO DAILY Non-Formulary Medication [NF Drug] 1 each PO DAILY Non-Formulary Medication [NF Drug] 1 each PO DAILY - Assessment Assessment:: hyperglycemia: Discussed/consult pt status yesterday with [facility] 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 Recommend potassium 40 meq po with potassium level every 6 hour. Reviewed pt troponin level and slight increase. States this is expected to vary and no concerns at this time. Discussed/consult with THEODORE Ag, working with pt bone marrow physician, in [place]. Reviewed pt status, states no changes to plan of treatment needed. OV next Saturday at 1:30pm in [place]. - Plan Plan:: hyperglycemia: Monitor ac and hs blood sugars continue/Resume oral diabetic medication. labs this am: BMP Hypokalemia: Monitor BMP this am. Resume potassium 20 meq tid with meals. post AR: Continue medications as prescribed from [facility] cardiology Labs this am. Discharge plan: Plan to discharge today. Pt to follow-up next week with PCP. Continue with potassium tid and oral diabetic medications.
[2017-09-20] MEDS: FLUDROCORTISONE 0.1 MG PO SCH (09:55)
[2017-09-20] MEDS: ACYCLOVIR 400 MG PO SCH (09:56)
[2017-09-20] MEDS: DULOXETINE HCL 30 MG PO SCH (09:58)
[2017-09-20] MEDS: Non-Formulary Medication 1 Each (Gabapentin [Neurontin] 100 MG) PO SCH (09:59)
[2017-09-20] MEDS: HYDROCORTISONE 20 MG PO SCH (10:00)
[2017-09-20] MEDS: AMLODIPINE 5 MG PO SCH (10:00)
[2017-09-20] MEDS: ATORVASTATIN 40 MG PO SCH (10:02)
[2017-09-20] MEDS: CARVEDILOL 6.25 MG PO SCH (10:02)
[2017-09-20] MEDS: FUROSEMIDE 40 MG PO SCH (10:04)
[2017-09-20] MEDS: TRIMETHOPRIM PO SCH (10:06)
[2017-09-20] MEDS: SULFAMETHOXAZOLE PO SCH (10:06)
--- NOTE | 2017-09-20 12:09 | PCM.DCSUM1 ---
Discharge Summary - Hospital Course Free Text/Narrative:: 66 yr male presents with hyperglycemia and hypokalemia, recent discharge from [facility] with elevated troponins. continue with medications as discharged from [facility] with addition of missed medication of Januvia. patient educator met with pt and and reviewed food choices. to monitor Blood sugar before meals and continue with medications. 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 Potassium low this am and recommend continue with KCL 20meq tid for this. Pt and state comfort with discharge. Celebrex and Sirolimus on hold during this visit per guidance from [facility] discharge. - Discharge Data Discharge Date: 09/20/17 Discharge Disposition: Home, Self-Care 01 Condition: Stable - Discharge Diagnosis/Problem(s) (1) Hyperglycemia SNOMED Code(s): 30072303 ICD Code: R73.9 - HYPERGLYCEMIA, UNSPECIFIED Status: Acute (2) Hypokalemia SNOMED Code(s): 92808184 ICD Code: E87.6 - HYPOKALEMIA Status: Acute - Patient Instructions Diet: Diabetic Diet Diet, Other: consistent carbohydrate Activity: As Tolerated Driving: Do Not Drive Showering/Bathing: May Shower Wound/Incision Care: Change Dressing Daily Notify Provider of: Fever - Discharge Plan Home Medications: Home Meds Acyclovir 400 mg PO DAILY 09/13/17 [History] Apixaban [Eliquis] 5 mg PO BID 09/13/17 [History] Celecoxib [CeleBREX] 200 mg PO DAILY 09/13/17 [History] Cholecalciferol (Vitamin D3) [Vitamin D] 5,000 unit PO DAILY 09/13/17 [History] DULoxetine HCl [Cymbalta] 30 mg PO DAILY 09/13/17 [History] Fluconazole [Diflucan] 200 mg PO DAILY 09/13/17 [History] Fludrocortisone [Florinef] 0.1 mg PO WITHBREAKFAST 09/13/17 [History] Folic Acid 1 mg PO DAILY 09/13/17 [History] Gabapentin [Neurontin] 100 mg PO TID 09/13/17 [History] Hydrocortisone 20 mg PO BID 09/13/17 [History] Multivitamin [Multi-Day Vitamins] 1 each PO DAILY 09/13/17 [History] Omeprazole Magnesium [Prilosec Otc] 20 mg PO BID 09/13/17 [History] Penicillin V Potassium 500 mg PO BID 09/13/17 [History] Potassium Chloride [Klor-Con M20] 20 meq PO BID 09/13/17 [History] Prednisone [IJD: predniSONE] 20 mg PO WITHBREAKFAST 09/13/17 [History] Sirolimus 1 mg PO BID 09/13/17 [History] Sulfamethoxazole/Trimethoprim [Bactrim 400-80 MG] 1 each PO BID 09/13/17 [ History] Sulfamethoxazole/Trimethoprim [Bactrim 400-80 MG] 1 each PO DAILY 09/13/17 [ History] Forms: ED Department Discharge Referrals: PCP,None [Primary Care Provider] - - General Info Date of Service: 09/20/17 Admission Dx/Problem (Free Text: hyperglycemia Subjective Update: Pt feeling better and states hungry today. States he and are ready to venture south to home in [place]. States they will take their time driving there and have stops along the way at motels. Functional Status: Reports: Tolerating Diet, Urinating - Review of Systems General: Reports: Fatigue HEENT: Reports: No Symptoms Pulmonary: Reports: Shortness of Breath. Denies: Cough Cardiovascular: Reports: Chest Pain Gastrointestinal: Reports: Difficulty Swallowing. Denies: Diarrhea, Nausea Neurological: Reports: No Symptoms Psychiatric: Reports: No Symptoms - Patient Data Vitals - Most Recent: Last Vital Signs Temp 97.8 F 09/19/17 05:00 Pulse 90 09/19/17 05:00 Resp 16 09/19/17 05:00 BP 144/68 H 09/19/17 05:00 Pulse Ox 97 09/19/17 05:34 Weight - Most Recent: 155 lb I&O - Last 24 hours: Intake & Output 09/19/17 09/20/17 09/20/17 22:59 06:59 14:59 Intake Total 1722 2050 Output Total 1500 1200 Balance 222 850 Lab Results - Last 24 hrs: Laboratory Results - last 24 hr 09/19/17 09/19/17 09/19/17 Range/Units 12:00 16:55 16:55 WBC (4.0-11.0) K/uL RBC (4.50-6.50) M/uL Hgb (13.0-18.0) g/dL Hct (40.0-54.0) % MCV (76-96) fL MCH (27.0-32.0) pg MCHC (31.0-35.0) g/dL RDW (11.0-16.0) % Plt Count (150-400) K/uL MPV (6.0-10.0) fL Neut % (Auto) (45.0-70.0) % Lymph % (Auto) (20.0-40.0) % Tift % (Auto) (3.0-10.0) % Eos % (Auto) (1.0-5.0) % Baso % (Auto) (0.0-0.5) % Neut # (Auto) (2.00-7.50) K/uL Lymph # (Auto) (1.50-4.00) K/uL Tift # (Auto) (0.20-0.80) K/uL Eos # (Auto) (0.04-0.40) K/uL Baso # (Auto) (0.02-0.10) K/uL Sodium 143 (136-145) mmol/L Potassium 3.4 L (3.5-5.1) mmol/L Chloride 100 (98-107) mmol/L Carbon Dioxide 39.4 H (21.0-32.0) mmol/L Anion Gap 7.0 (5.0-15.0) mmol/L BUN 37 H (8-26) mg/dL Creatinine 1.81 H (0.70-1.30) mg/dL Est Cr Clr Drug Dosing 39.38 mL/min Estimated GFR (MDRD) 38 L (>60) MLS/MIN BUN/Creatinine Ratio 20.4 (6-25) Glucose 213 H D (74-100) mg/dL POC Glucose (74-110) mg/dL Lactic Acid (0.90-1.70) mmol/L Calcium 8.1 L (8.5-10.1) mg/dL Total Bilirubin (0.0-1.0) mg/dL AST (15-37) U/L ALT (12-78) U/L Alkaline Phosphatase (46-116) U/L Troponin I 0.102 H* 0.094 H* (0.000-0.060) ng/mL Total Protein (6.4-8.2) g/dL Albumin (3.4-5.0) g/dL Globulin (2.2-4.2) g/dL Albumin/Globulin Ratio (0.8-2.0) 09/19/17 09/19/17 09/19/17 Range/Units 21:07 23:00 23:56 WBC (4.0-11.0) K/uL RBC (4.50-6.50) M/uL Hgb (13.0-18.0) g/dL Hct (40.0-54.0) % MCV (76-96) fL MCH (27.0-32.0) pg MCHC (31.0-35.0) g/dL RDW (11.0-16.0) % Plt Count (150-400) K/uL MPV (6.0-10.0) fL Neut % (Auto) (45.0-70.0) % Lymph % (Auto) (20.0-40.0) % Tift % (Auto) (3.0-10.0) % Eos % (Auto) (1.0-5.0) % Baso % (Auto) (0.0-0.5) % Neut # (Auto) (2.00-7.50) K/uL Lymph # (Auto) (1.50-4.00) K/uL Tift # (Auto) (0.20-0.80) K/uL Eos # (Auto) (0.04-0.40) K/uL Baso # (Auto) (0.02-0.10) K/uL Sodium (136-145) mmol/L Potassium 4.2 D (3.5-5.1) mmol/L Chloride (98-107) mmol/L Carbon Dioxide (21.0-32.0) mmol/L Anion Gap (5.0-15.0) mmol/L BUN (8-26) mg/dL Creatinine (0.70-1.30) mg/dL Est Cr Clr Drug Dosing mL/min Estimated GFR (MDRD) (>60) MLS/MIN BUN/Creatinine Ratio (6-25) Glucose (74-100) mg/dL POC Glucose 337 H 249 H (74-110) mg/dL Lactic Acid (0.90-1.70) mmol/L Calcium (8.5-10.1) mg/dL Total Bilirubin (0.0-1.0) mg/dL AST (15-37) U/L ALT (12-78) U/L Alkaline Phosphatase (46-116) U/L Troponin I (0.000-0.060) ng/mL Total Protein (6.4-8.2) g/dL Albumin (3.4-5.0) g/dL Globulin (2.2-4.2) g/dL Albumin/Globulin Ratio (0.8-2.0) 09/20/17 09/20/17 09/20/17 Range/Units 07:15 07:15 07:15 WBC 9.1 (4.0-11.0) K/uL RBC 2.49 L (4.50-6.50) M/uL Hgb 7.9 L (13.0-18.0) g/dL Hct 25.1 L (40.0-54.0) % MCV 101 H (76-96) fL MCH 31.7 (27.0-32.0) pg MCHC 31.5 (31.0-35.0) g/dL RDW 14.5 (11.0-16.0) % Plt Count 208 (150-400) K/uL MPV 11.0 H (6.0-10.0) fL Neut % (Auto) 66.5 (45.0-70.0) % Lymph % (Auto) 19.9 L (20.0-40.0) % Tift % (Auto) 10.3 H (3.0-10.0) % Eos % (Auto) 2.9 (1.0-5.0) % Baso % (Auto) 0.4 (0.0-0.5) % Neut # (Auto) 6.02 (2.00-7.50) K/uL Lymph # (Auto) 1.80 (1.50-4.00) K/uL Tift # (Auto) 0.93 H (0.20-0.80) K/uL Eos # (Auto) 0.26 (0.04-0.40) K/uL Baso # (Auto) 0.04 (0.02-0.10) K/uL Sodium 144 (136-145) mmol/L Potassium 3.0 L D (3.5-5.1) mmol/L Chloride 102 (98-107) mmol/L Carbon Dioxide 37.9 H (21.0-32.0) mmol/L Anion Gap 7.1 (5.0-15.0) mmol/L BUN 25 D (8-26) mg/dL Creatinine 1.57 H (0.70-1.30) mg/dL Est Cr Clr Drug Dosing 45.40 mL/min Estimated GFR (MDRD) 44 L (>60) MLS/MIN BUN/Creatinine Ratio 15.9 (6-25) Glucose 138 H D (74-100) mg/dL POC Glucose (74-110) mg/dL Lactic Acid 1.39 (0.90-1.70) mmol/L Calcium 7.7 L (8.5-10.1) mg/dL Total Bilirubin 0.3 (0.0-1.0) mg/dL AST 25 (15-37) U/L ALT 23 (12-78) U/L Alkaline Phosphatase 79 (46-116) U/L Troponin I 0.108 H* (0.000-0.060) ng/mL Total Protein 4.8 L (6.4-8.2) g/dL Albumin 1.9 L (3.4-5.0) g/dL Globulin 2.9 (2.2-4.2) g/dL Albumin/Globulin Ratio 0.7 L (0.8-2.0) Med Orders - Current: Current Medications Potassium Chloride/Sodium Chloride (1/2 Ns With 20 Meq Kcl) 1,000 mls @ 125 mls /hr IV ASDIRECTED [facility] Last Admin: 09/19/17 11:40 Dose: 75 mls/hr Sodium Chloride (Sodium Chloride 0.45%) 1,000 mls @ 75 mls/hr IV ASDIRECTED [facility] Last Admin: 09/19/17 00:15 Dose: 75 mls/hr (Acyclovir [ (Acyclovir] 400 Mg)) 400 mg PO DAILY [facility] Last Admin: 09/20/17 09:56 Dose: 400 mg (Apixaban [Eliquis] (5 Mg)) 5 mg PO BID [facility] Last Admin: 09/20/17 09:57 Dose: 5 mg (Duloxetine Hcl [ (Cymbalta] 30 Mg)) 30 mg PO DAILY [facility] Last Admin: 09/20/17 09:58 Dose: 30 mg (Fludrocortisone [ (Florinef] 0.1 Mg)) 0.1 mg PO WITHBREAKFAST [facility] Last Admin: 09/20/17 09:55 Dose: 0.1 mg Non-Formulary Medication (Gabapentin [Neurontin]) 100 mg PO TID [facility] Last Admin: 09/20/17 09:59 Dose: 100 mg Non-Formulary Medication (Hydrocortisone [Hydrocortisone]) 20 mg PO BID [facility] Last Admin: 09/20/17 10:00 Dose: 20 mg Non-Formulary Medication (Omeprazole Magnesium [Prilosec Otc]) 20 mg PO BID [facility] Last Admin: 09/20/17 08:05 Dose: 20 mg (Sulfamethoxazole/Trimethoprim [ Bactrim 400-80 Mg] 1 Each) 1 each PO DAILY [facility] Last Admin: 09/20/17 10:06 Dose: Not Given (Cholecalciferol ( Vitamin D3) [Vitamin D] 5,000 Unit) 5,000 unit PO DAILY [facility] Last Admin: 09/19/17 18:53 Dose: Not Given Januvia 50mg Tablets 0.5 each PO DAILY [facility] Last Admin: 09/20/17 08:05 Dose: 0.5 each Celecoxib 200mg (Capsules) 1 each PO DAILY [facility] Last Admin: 09/20/17 10:04 Dose: Not Given Atorvastatin 40mg (Tablets) 1 each PO DAILY [facility] Last Admin: 09/20/17 10:02 Dose: 1 each Glipizide 5mg (Tablets) 1 each PO DAILY [facility] Last Admin: 09/20/17 08:04 Dose: 1 each Carvedilol 6.25mg (Tablets) 1 each PO BIDMEALS [facility] Last Admin: 09/20/17 10:02 Dose: 1 each Amlodipine 5mg (Tablets) 1 each PO DAILY [facility] Last Admin: 09/20/17 10:00 Dose: 1 each Furosemide 40mg (Tablets) 1 each PO DAILY [facility] Last Admin: 09/20/17 10:04 Dose: 1 each (Folic Acid [Folic (Acid] 1 Mg)) 1 mg PO BID [facility] Last Admin: 09/20/17 09:59 Dose: 1 mg Potassium Chloride (Klor-Con M20) 20 meq PO TID [facility] Last Admin: 09/20/17 08:00 Dose: 20 meq Discontinued Medications Sodium Chloride (Sodium Chloride 0.45%) 1,000 mls @ 250 mls/hr IV ASDIRECTED [facility] Last Admin: 09/19/17 02:45 Dose: 250 mls/hr Sodium Chloride (Normal Saline) 1,000 mls @ 999 mls/hr IV ASDIRECTED [facility] Last Admin: 09/19/17 01:40 Dose: 999 mls/hr Insulin Human Regular (Humulin R) 10 unit SUBCUT ONETIME ONE PRN Reason: Protocol Stop: 09/19/17 02:46 Last Admin: 09/19/17 02:30 Dose: 10 units Insulin Human Regular (Humulin R) 0 unit SUBCUT ONETIME [facility] PRN Reason: Protocol Stop: 09/19/17 13:00 Last Admin: 09/19/17 12:57 Dose: 3 units (Folic Acid [Folic (Acid] 1 Mg)) 1 mg PO DAILY [facility] (Multivitamin [Multi -Day Vitamins] 1 Each) 1 each PO DAILY [facility] Non-Formulary Medication (Prednisone [Ijd: Prednisone]) 20 mg PO WITHBREAKFAST [facility] (Fluconazole [ (Diflucan] 200 Mg)) 200 mg PO DAILY [facility] Stop: 09/19/17 18:00 Last Admin: 09/19/17 13:30 Dose: 200 mg (Sulfamethoxazole/Trimethoprim [ Bactrim 400-80 Mg] 1 Each) 1 each PO BID [facility] Stop: 09/19/17 18:00 Last Admin: 09/20/17 09:53 Dose: Not Given Potassium Chloride (Klor-Con M20) 40 meq PO ONETIME ONE Stop: 09/19/17 13:55 - Exam Quality Assessment: Reports: Supplemental Oxygen General: Reports: Alert, Oriented HEENT: Reports: Mucous Membr. Moist/Lucien Neck: Reports: Supple Lungs: Reports: Clear to Auscultation, Normal Respiratory Effort Cardiovascular: Reports: Regular Rate, Regular Rhythm GI/Abdominal Exam: Normal Bowel Sounds, Soft, Non-Tender Extremities: Normal Range of Motion Skin: Reports: Warm, Dry Wound/Incisions: Reports: Dressing Dry and Intact (G tube) Neurological: Reports: No New Focal Deficit Psy/Mental Status: Reports: Alert, Normal Affect *Q Meaningful Use (DIS) - VTE *Q VTE Criteria *Q: - Stroke *Q Stroke Criteria *Q: - AMI *Q AMI Criteria *Q:
[2017-09-20 15:35] VITALS: BP 111/59
== END 2017-09-20 11:30 | disposition home or self-care (01) ==
LOC: LB.ED 23:58 → UNDOADMOB 09-19 02:45 → LB.MS 09-19 02:45
PROVIDERS: ADMIT Nurse Practitioner Family; ATTEND Nurse Practitioner Family
DX: E11.65 Type 2 diabetes mellitus with hyperglycemia (principal); E87.6 Hypokalemia; I25.2 Old myocardial infarction; I63.9 Cerebral infarction, unspecified; Z79.899 Other long term (current) drug therapy; Z98.890 Other specified postprocedural states
CPT/HCPCS: 36415; 80048; 80053; 81001; 82803; 82947; 82962; 83036; 83605; 83880; 84132; 84484; 85025; 85610; 96360; 96361; 96372; 99217; 99220; 99285; A9270; G0108; G0378; J3480; J3490; J7040